=== PATIENT | female | born 1950 | race Caucasian/White ===

== ENCOUNTER → 2021-01-22 08:20 | Outpatient (BNVA) | payer BC, SELFPAY | PROVIDERS: PCP Family Medicine Adult Medicine; Visit Provider Family Medicine Adult Medicine | DX: Z00.00 Encounter for general adult medical examination without abnormal findings (principal); G43.109 Migraine with aura, not intractable, without status migrainosus; I10 Essential (primary) hypertension | CPT/HCPCS: 80053; 80061; 83036; 84443; 85025 ==

== ENCOUNTER → 2021-01-31 07:54 | Outpatient (BNVA) | payer BC, SELFPAY | PROVIDERS: PCP Family Medicine Adult Medicine; Visit Provider Specialist | DX: G43.711 Chronic migraine without aura, intractable, with status migrainosus (principal) | CPT/HCPCS: 99204 ==

== ENCOUNTER → 2021-07-23 08:30 | Outpatient (BNVA) | payer BC, SELFPAY | PROVIDERS: PCP Family Medicine Adult Medicine; Visit Provider Family Medicine Adult Medicine | DX: Z00.00 Encounter for general adult medical examination without abnormal findings (principal); I10 Essential (primary) hypertension; N18.30 Chronic kidney disease, stage 3 unspecified; R51.9 Headache, unspecified | CPT/HCPCS: 80053 ==

== ENCOUNTER → 2022-09-30 12:56 | Outpatient (BNVA) | payer BC, SELFPAY | PROVIDERS: PCP Family Medicine Adult Medicine; Visit Provider Physician Assistant | DX: M54.2 Cervicalgia (principal) | CPT/HCPCS: 72050 ==

== ENCOUNTER 2022-10-24 06:49 | Outpatient (CLI) | payer BC, SELFPAY ==
--- NOTE | 2022-10-24 07:15 | MR_ITS ---
WS: [id number] MRI CERVICAL SPINE NONCONTRAST HISTORY: neck pain COMPARISON: None available. Technique: Multiplanar, multisequence noncontrast imaging of the cervical spine. Mild straightening and slight reversal normal cervical lordosis centered at 4 5. Partial fusion acros s the C5-6 disc. No acute fractures or marrow edema. Signal within the cervical cord is normal. Visualized posterior fossa is unremarkable. Craniocervical junction, C1 and C2 relationship, odontoid process and soft tissues are normal. C2-C3: Mild osteophytic ridging. Asymmetric disc and osteophyte extending into the proximal RIGHT for amen. Slight deformity of the RIGHT lateral thecal sac. No high-grade stenosis. C3-C4: Mild osteophytic ridging. Mild RIGHT foraminal narrowing. C4-C5: Mild annular disc bulging and osteophytic ridging. Very shallow LEFT paracentral disc protrusi on and annular fissure. Mild facet arthritis. Mild central and bilateral foraminal stenosis. C5-C6: Mild osteophytic ridging with facet arthritis. Very slight encroachment upon the ventral theca l sac but no stenosis. C6-C7: Osteophytic ridging and annular disc bulging and facet arthritis. Moderate to severe central w ith moderate bilateral foraminal stenosis. Effacement of CSF. C7-T1: No stenosis. C2 anterolisthesis by 2 mm. Small disc bulges are protrusions at T1-2 and T2-3. No cord contact. MR/MR cervical spin wo con* [id number] IMPRESSION: 1. Moderate to severe central with moderate bilateral foraminal stenosis at C6 -7. Complete effacement of CSF. 2. Mild central and bilateral foraminal stenosis at C4-5. 3. Mild RIGHT foraminal stenosis C3-4. 4. Partial fusion involving the posterior C5-6 disc.
== END 2022-10-24 06:50 | disposition home or self-care (01) ==
PROVIDERS: PCP Family Medicine Adult Medicine; Visit Provider Physician Assistant
DX: M48.02 Spinal stenosis, cervical region; Z98.1 Arthrodesis status
CPT/HCPCS: 72141

== ENCOUNTER → 2024-02-02 18:05 | Outpatient (BNVA) | payer BC, SELFPAY | PROVIDERS: PCP Family Medicine Adult Medicine; Visit Provider Emergency Medicine | DX: S62.613A Displaced fracture of proximal phalanx of left middle finger, initial encounter for closed fracture (principal); X58.XXXA Exposure to other specified factors, initial encounter | CPT/HCPCS: 73130 ==

== ENCOUNTER 2024-02-02 18:34 | Emergency (ER) | payer MEDICARE, SELFPAY ==
[2024-02-02] VITALS (9 sets, daily range): BP systolic 140–171; BP diastolic 77–110; PULSE 73–85; RESP 14–16; TEMP 36.4–36.6; O2SAT 93–98
[2024-02-02] MEDS: ceFAZolin 2,000 mg SDV 2000 MG IVP (19:10)
--- NOTE | 2024-02-02 19:11 | XRR_ITS ---
PROCEDURE INFORMATION: Exam: XR Left Hand Exam date and time: 02/02/2024 7:16 PM Age: 73 years old Clinical indication: Injury or trauma; Other: Laceration; Left; Index finger; Additional info: Fracture TECHNIQUE: Imaging protocol: Radiologic exam of the left hand. Views: 3 or more views. COMPARISON: CR XR hand LT min 3V* [id number] 02/02/2024 6:15 PM FINDINGS: Bones/joints: Transverse fracture of the proximal 2nd middle phalanx with medial displacement of 2 millimeters, improved. Soft tissues: Soft tissue swelling. XR/XR hand LT min 3V* [id number] IMPRESSION: Transverse fracture of the proximal 2nd middle phalanx with medial displacement of 2 millimeters, improved.
--- NOTE | 2024-02-02 19:52 | ED_ITS ---
Documented by User: Debi Maravilla MD 02/02/24 22:01 HPI - Extremity Problem General: Chief complaint: Extremity Injury, Upper Stated complaint: Urgent care sent over for left hand Time Seen by Provider: 02/02/24 18:58 History of Present Illness: 69-year-old female with a history of hyp ertension who presents the emergency room from urgent care clinic with a left index finger open fracture. She also has a laceration on her fifth digit. Both lacerations are on the palmar side of the hand. 1 on her fifth digits is running vertically. The 1 on her index finger is running horizontally. She appears to be neurovascularly intact. Her index finger she has full range of motion and appears to be able to bend the tip of her finger. She actually reduced the finger herself prior to arrival here in the emergency room. She was sent for antibiotics and tetanus and consultation with hand Ortho. Review of Systems Narrative: Constitutional symptoms: Negative except as documented in HPI. Skin symptoms: Negative except as documented in HPI. Eye symptoms: Negative except as documented in HPI. ENMT symptoms: Negative except as documented in HPI. Respiratory symptoms: Negative except as documented in HPI. Cardiovascular symptoms: Negative except as documented in HPI. Gastrointestinal symptoms: Negative except as documented in HPI. Genitourinary symptoms: Negative except as documented in HPI. Musculoskeletal symptoms: Negative except as documented in HPI. Neurologic symptoms: Negative except as documented in HPI. Psychiatric symptoms: Negative except as documented in HPI. Endocrine symptoms: Negative except as documented in HPI. PFSH ED PFSH: Medical History [facility] for pain management CKD (chronic kidney disease) stage 3, GFR 30-59 ml/min CR 1.0, 07-23-2021 with GFR 49. Encounter for wellness examination Hypertension Occipital headache Surgical History Hx of hysterectomy Social History Smoking and tobacco/nicotine status: unknown if used tobacco/nicotine Alcohol intake: current Alcohol intake frequency: holidays/special occasions only Substance/Drug Use: never Marital status: Number of children: 3 Number of grandchildren: 5 Current occupational status: retired Female Reproductive History: Para: 3 Spontaneous abortions: No Physical Exam Narrative: EXAM NARRATIVE: General: Alert, no acute distress. Skin: warm and dry Head: Normocephalic Neck: Trachea midline Eye: Extraocular movements are intact. Ears, nose, mouth and throat: Oral mucosa moist Respiratory: Respirations are non-labored Musculoskeletal: Left index finger on the middle phalanx she has a large horizontal running laceration. She appears to be able to flex and extend the distal finger. She has good cap refill. She says she has good sensation. There is also a laceration on her left fifth digit. This is running vertically. Bleeding is controlled. Neurovascularly intact. Neurological: Alert and oriented, No focal neurological deficit observed. Psychiatric: Cooperative, appropriate mood & affect. Course Vital Signs: Vital signs: Vital Signs Temperature 97.6 F 02/02/24 18:52 Pulse Rate 82 02/02/24 21:30 Respiratory Rate 14 02/02/24 21:30 Blood Pressure 167/98 02/02/24 21:30 Pulse Oximetry 93 02/02/24 21:30 Oxygen Delivery Me thod Room Air 02/02/24 21:30 MDM - Extremity (Nontraumatic) Medical Decision Making X-ray of the left hand. There is a slightly displaced middle phalanx fracture proximally. This does not involve the joint. This appears improved from x-rays done just earlier at the urgent care. This was reviewed and interpreted by myself the emergency room physician. I also reviewed the radiology report. Consultation: I spoke with Dr. Whiting who is on-call for orthopedics here. She recommends consultation with hand orthopedics. Consultation: I spoke with Dr. Del Angel with hand surgery at [facility] in [place]. He is reviewing the films. From verbal description he recommends a good washout antibiotics and closure with follow-up in clinic not emergently. Suture placement by Rdoney SALINAS. See his note for details. Splint placed by nursing. I evaluated. Neurovascularly intact. Assessment and plan: Open fracture of the left index finger. Laceration of the left fifth digit. - Discharged home - Discussed findings and plan with patient. Answered any questions. - All laboratory values were reviewed and interpreted personally by myself, the ER physician - All imaging was reviewed and interpreted personally by myself, the ER physician. - Evaluation and treatment of this problem were appropriate in the emergency setting Lab Data Radiology Impressions Hand X-Ray 02/02/24 19:11 IMPRESSION: Transverse fracture of the proximal 2nd middle phalanx with medial displacement of 2 millimeters, improved. Discharge Plan Discharge Patient Disposition: Home Clinical Impression: Open finger fracture Qualifiers: Encounter type: initial encounter Finger: index finger Phalanx: middle Fracture alignment: displaced Laterality: left Qualified Code(s): S62.621B - Displaced fracture of middle phalanx of left index finger, initial encounter for open fracture Finger laceration Qualifiers: Encounter type: initial encounter Finger: little finger Damage to nail status: without damage Foreign body presence: without foreign body Laterality: left Qualified Code(s): S61.217A - Laceration without foreign body of left little finger without damage to nail, initial encounter Condition: Stable Prescriptions: New cephalexin 500 mg capsule 500 mg PO BID 10 Days Qty: 20 0RF No Action famotidine [Pepcid] 40 mg tablet 40 mg PO BID 10 Days Qty: 20 0RF diphenhydramine HCl [Benadryl Allergy] 25 mg tablet 50 mg PO TID 3 Days Qty: 18 0RF gabapentin 100 mg capsule 100 mg PO .q 8 hr tizanidine 2 mg tablet 2 mg PO DAILY lisinopril 5 mg tablet 5 mg PO DAILY Qty: 90 0RF Discharge Orders: Discharge ED (Routine); Ordered 02/02/24 Ordered By: Debi Maravilla Referrals: Justus Kim MD [Primary Care Provider] - Discharge Diet: Usual diet Discharge Activity: Increase activity as tolerated Patient Instructions: Finger Fracture (ED) Activity Restrictions/Additional Instructions: Please follow with Dr. Morales Contreras at [facility] orthopedics. Call tomorrow to schedule an appointment. The number is [phone]. Address is [address] [place] [address]. [address]. [place], [place] 12/29/1972 Suture removal per their instructions. Thank you for choosing [facility] for your healthcare needs today. Please realize this is an emergency room and that we are providing you with a medical screening exam and this may not be complete and all inclusive of all the testing and or work up that you may need to determine your ailment or severity of your illness. You have been screened and evaluated and felt safe for discharge. Health conditions do change or evolve sometimes and as such it is important that you follow up with your Primary Doctor to be re checked, 3-5 days is a general good time frame for follow up. You are always welcome to return to the ED for re assessment if your symptoms are worsening or you have new concerns Coding Level of Care Code ED Cable Television Access Coordinator for Chg Fwd Documented by User: AMANDA Casey 02/02/24 22:00 HPI - Extremity Problem General: Chief complaint: Extremity Injury, Upper Stated complaint: Urgent care sent over for left hand Time Seen by Provider: 02/02/24 18:58 PFSH ED PFSH: Medical History [facility] for pain management CKD (chronic kidney disease) stage 3, GFR 30-59 ml/min CR 1.0, 07-23-2021 with GFR 49. Encounter for wellness examination Hypertension Occipital headache Surgical History Hx of hysterectomy Social History Smoking and tobacco/nicotine status: unknown if used tobacco/nicotine Alcohol intake: current Alcohol intake frequency: holidays/special occasions only Substance/Drug Use: never Marital status: Number of children: 3 Number of grandchildren: 5 Current occupational status: retired Procedures Laceration Laceration 1: Site: hand Side (If applicable): left (pinky) Size (cm): 3 Description: linear and clean Depth: simple, single layer Local Anesthetic: other anesthetic (digital block) Pre-repair: wound explored and irrigated extensively (soaked in Betadine) Skin layer closed with: nylon Size (cm): 5-0 Number of sutures: 4 Technique: simple, interrupted Laceration 2: Site: hand Side (If applicable): left (index) Size (cm): 5 Description: linear and clean Depth: simple, single layer Local Anesthetic: other anesthetic (digital block) Pre-repair: wound explored and irrigated extensively (soaked in Betadine) Skin layer closed with: nylon Size (cm): 5-0 Number of sutures: 10 Technique: simple, interrupted Nerve Block Nerve Block 1: Time out performed: No Local Anesthetic: lidocaine 2% Amount of anesthesia used (mL): 3 Side: left Nerve Blocks: digital (pinky finger) Procedure Successful: Yes Patient Tolerated Procedure: well Complications: none Nerve Block 2: Time out performed: No Local Anesthetic: lidocaine 2% Amount of anesthesia used (mL): 5 Side: left Nerve Blocks: digital (index finger) Procedure Successful: Yes Patient Tolerated Procedure: well Complications: none Course Vital Signs: Vital signs: Vital Signs Temperature 97.6 F 02/02/24 18:52 Pulse Rate 82 02/02/24 21:30 Respiratory Rate 14 02/02/24 21:30 Blood Pressure 167/98 02/02/24 21:30 Pulse Oximetry 93 02/02/24 21:30 Oxygen Delivery Me thod Room Air 02/02/24 21:30 MDM - Extremity (Nontraumatic) Lab Data Radiology Impressions Hand X-Ray 02/02/24 19:11 IMPRESSION: Transverse fracture of the proximal 2nd middle phalanx with medial displacement of 2 millimeters, improved. All radiology interpretation(s) finalized by discharge Discharge Plan Discharge Patient Disposition: Home Clinical Impression: Open finger fracture Qualifiers: Encounter type: initial encounter Finger: index finger Phalanx: middle Fracture alignment: displaced Laterality: left Qualified Code(s): S62.621B - Displaced fracture of middle phalanx of left index finger, initial encounter for open fracture Finger laceration Qualifiers: Encounter type: initial encounter Finger: little finger Damage to nail status: without damage Foreign body presence: without foreign body Laterality: left Qualified Code(s): S61.217A - Laceration without foreign body of left little finger without damage to nail, initial encounter Condition: Stable Prescriptions: New cephalexin 500 mg capsule 500 mg PO BID 10 Days Qty: 20 0RF No Action famotidine [Pepcid] 40 mg tablet 40 mg PO BID 10 Days Qty: 20 0RF diphenhydramine HCl [Benadryl Allergy] 25 mg tablet 50 mg PO TID 3 Days Qty: 18 0RF gabapentin 100 mg capsule 100 mg PO .q 8 hr tizanidine 2 mg tablet 2 mg PO DAILY lisinopril 5 mg tablet 5 mg PO DAILY Qty: 90 0RF Discharge Orders: Discharge ED (Routine); Ordered 02/02/24 Ordered By: Debi Maravilla Referrals: Justus Kim MD [Primary Care Provider] - Discharge Diet: Usual diet Discharge Activity: Increase activity as tolerated Patient Instructions: Finger Fracture (ED) Activity Restrictions/Additional Instructions: Please follow with Dr. Morales Contreras at [facility] orthopedics. Call tomorrow to schedule an appointment. The number is [phone]. Address is [address] [place] [address]. [address]. [place], [place] 12/29/1972 Suture removal per their instructions. Thank you for choosing [facility] for your healthcare needs today. Please realize this is an emergency room and that we are providing you with a medical screening exam and this may not be complete and all inclusive of all the testing and or work up that you may need to determine your ailment or severity of your illness. You have been screened and evaluated and felt safe for discharge. Health conditions do change or evolve sometimes and as such it is important that you follow up with your Primary Doctor to be re checked, 3-5 days is a general good time frame for follow up. You are always welcome to return to the ED for re assessment if your symptoms are worsening or you have new concerns Coding Level of Care Code ED Cable Television Access Coordinator for Maddie Rivera
== END 2024-02-02 23:07 | disposition home or self-care (01) ==
PROVIDERS: Emergency Provider Emergency Medicine; PCP Family Medicine Adult Medicine
DX: S62.621B Displaced fracture of middle phalanx of left index finger, initial encounter for open fracture (principal); S61.217A Laceration without foreign body of left little finger without damage to nail, initial encounter; I12.9 Hypertensive chronic kidney disease with stage 1 through stage 4 chronic kidney disease, or unspecified chronic kidney disease; N18.30 Chronic kidney disease, stage 3 unspecified; X58.XXXA Exposure to other specified factors, initial encounter
CPT/HCPCS: 12004; 73130; 96374; 99284; J0690

== ENCOUNTER → 2024-09-29 13:57 | Outpatient (BNVA) | payer MEDICARE, SELFPAY | PROVIDERS: PCP Family Medicine; Visit Provider Family Medicine | DX: N18.30 Chronic kidney disease, stage 3 unspecified (principal) | CPT/HCPCS: 80053; 80061; 85025 ==

== ENCOUNTER 2025-01-18 12:18 | Outpatient (CLI) | payer MEDICARE, SELFPAY ==
--- NOTE | 2025-01-18 12:29 | XR_ITS ---
WS: [id number] Exam: XR shoulder LT min 2V* [id number] Date/Time of Exam: 01/18/2025 12:29 PM Reason For Exam: GLENOHUMERAL ARTHRITIS No fracture noted. Advanced osteoarthritis of the glenohumeral joint with [id number]. Mild AC joint DJD. Normal soft tissues. Osteopenia. IMPRESSION1. Advanced osteoarthritis of the glenohumeral joint with [id number]. AC joint DJD also.
== END 2025-01-18 12:19 | disposition home or self-care (01) ==
PROVIDERS: PCP Family Medicine; Visit Provider Student in an Organized Health Care Education/Training Program
DX: M19.012 Primary osteoarthritis, left shoulder (principal); M85.812 Other specified disorders of bone density and structure, left shoulder
CPT/HCPCS: 73030